=== PATIENT | female | born 1935 | race Caucasian/White ===

== ENCOUNTER 2016-03-07 15:26 | Inpatient (IN) | payer OTHER, MEDICARE ==
[2016-03-07 15:44] VITALS: BMI 28.3
--- NOTE | 2016-03-07 18:47 | PDOC ---
History of Present Illness <Marcio Campos - Last Filed: 03/07/16 20:38> - General History Source: Patient, Sibling Exam Limitations: No Limitations - History of Present Illness Initial Comments: 03/07/16 19:15 The patient is an 80 year old female, with significant past medical history of a left knee replacement (2014), hypothyroidism, HTN, rheumatoid arthritis, who presents today with a DVT in the right leg. The patient was at an appointment with her orthopedist, Dr. Kennedy. He noticed that her right leg was swollen and advised her to get an ultrasound right away. The patient states that her leg has been swollen for 2 days. The patient states that she is mobile; however , her mobility has decreased over the past few months secondary to RLE pain. The patient lives at home alone, but has 24 hour home care. Denies chest pain, SOB. Denies fever, chills, nausea, vomiting. Allergies: NKDA Surgical Hx: Right ankle surgery. PCP- Dr. Cr Ortho: Dr. Samy Kennedy. <Niya Reilly - Last Filed: 03/07/16 20:43> - General Chief Complaint: Pain Stated Complaint: RT LEG BLOOD CLOT Time Seen by Provider: 03/07/16 18:36 Past History - Past Medical History Anemia: No Asthma: No Cancer: No Cardiac Disorders: No CVA: No COPD: No CHF: No Dementia: No Diabetes: No GI Disorders: No Disorders: No HTN: Yes Hypercholesterolemia: Yes Liver Disease: No Seizures: No Thyroid Disease: Yes (HYPOTHYROID) - Surgical History Abdominal Surgery: No Appendectomy: No Cardiac Surgery: No Cholecystectomy: No Lung Surgery: No Neurologic Surgery: No Orthopedic Surgery: No - Immunization History Immunization Up to Date: Yes - Psycho/Social/Smoking Cessation Hx Anxiety: No Suicidal Ideation: No Smoking Status: No Smoking History: Never smoked Have you smoked in the past 12 months: No Number of Cigarettes Smoked Daily: 0 Information on smoking cessation initiated: No Hx Alcohol Use: Yes (occasion) Substance Use Type: Alcohol <Marcio Campos - Last Filed: 03/07/16 20:38> <Niya Reilly - Last Filed: 03/07/16 20:43> - Past Medical History Allergies/Adverse Reactions: Allergies Allergy/AdvReac Type Severity Reaction Status Date / Time No Known Drug Allergies Allergy Verified 03/07/16 15:44 Home Medications: Ambulatory Orders Aspirin Coated [Ecotrin] 81 mg PO DAILY 01/28/12 Levothyroxine [Synthroid] 100 mcg PO DAILY 01/28/12 Metoprolol Succinate [Toprol XL] 25 mg PO DAILY 01/28/12 Review of Systems - Review of Systems Able to Perform ROS?: Yes Comments:: 03/07/16 19:16 CONSTITUTIONAL: No fever, no chills, no fatigue EYES: No visual changes ENT: No ear pain, no sore throat CARDIOVASCULAR: No chest pain, no palpitations RESPIRATORY: No cough, no SOB GI: No abdominal pain, no nausea, no vomiting, no constipation, no diarrhea GENITOURINARY: No dysuria, no frequency, no hematuria MUSKULOSKELETAL: +RLE swelling. No backpain, no joint pain, no myalgias SKIN: No rash NEURO: No headache <Niya Reilly - Last Filed: 03/07/16 20:43> *Physical Exam - Vital Signs Last Vital Signs Temp Pulse Resp BP Pulse Ox 97.9 F 74 18 131/67 96 03/07/16 15:39 03/07/16 15:39 03/07/16 15:39 03/07/16 15:39 03/07/16 15:39 <Marcio Campos - Last Filed: 03/07/16 20:38> - Vital Signs Last Vital Signs Temp Pulse Resp BP Pulse Ox 97.9 F 74 18 131/67 96 03/07/16 15:39 03/07/16 15:39 03/07/16 15:39 03/07/16 15:39 03/07/16 15:39 - Physical Exam Comments: 03/07/16 19:22 CONSTITUTIONAL: Awake, Alert. Obese. HEAD: Normocephalic; atraumatic EYES: PERRL; EOM intact ENMT: External appears normal; normal oropharynx NECK: Supple; non-tender; no cervical lymphadenopathy CARD: Normal S1, S2; no murmurs, rubs, or gallops RESP: Normal chest excursion with respiration; breath sounds clear and equal bilaterally; no wheezes, rhonchi, or rales ABD: Soft, non-distended; non-tender; no palpable organomegaly, no palpable hernias EXT: RLE: significantly edematous with +4 pitting edema extending to the mid- thigh. Normal ROM in all four extremities; non-tender to palpation; distal pulses intact SKIN: Warm, dry, no rash NEURO: No focal neurological deficiencies. <Niya Reilly - Last Filed: 03/07/16 20:43> Heart Score/ECG Review #1 03/07/16 20:27 Normal, poor baseline. <Niya Reilly - Last Filed: 03/07/16 20:43> ED Treatment Course - LABORATORY CBC & Chemistry Diagram: 03/07/16 19:01 03/07/16 19:16 <Marcio Campos - Last Filed: 03/07/16 20:38> - LABORATORY CBC & Chemistry Diagram: 03/07/16 19:01 03/07/16 19:16 - RADIOLOGY Radiograph Interpretation: 03/07/16 19:18 EXAM#: TYPE/EXAM: RESULT: [id number] US/DUPLEX VASCUL US-1 LEG Right leg pain and swelling. Right lower extremity Doppler venous ultrasound. Grayscale, pulsed Doppler and color Doppler interrogation of the right lower extremity deep venous system was performed. There is noncompression and no flow seen within the right common femoral and greater saphenous vein. Noncompression of the deep femoral vein with flow seen around the thrombus. There is also noncompression of the proximal and mid superficial femoral vein. Some flow seen around the thrombus. Partial compression of the distal superficial and incomplete compression of the popliteal vein with minimal flow seen. Posterior tibial vein is poorly visualized with flow identified on the color Doppler images, likely a patent vessel. No Dillon's cyst is identified in the popliteal fossa. Impression: Findings consistent with deep venous thromboses involving the common femoral, superficial femoral and likely the popliteal vein. There is also thrombosis of the greater saphenous and deep femoral vein. Posterior tibial vein is likely patent Referring physician Dr. Samy Kennedy was made aware of the findings and patient was sent to the emergency room as per his advice. Reported By: Ger Joiner MD 03/07/16 [id number] <Niya Reilly - Last Filed: 03/07/16 20:43> Medical Decision Making - Medical Decision Making 03/07/16 20:39 Patient is a morbidly obese 80-year-old female with history of hypothyroidism who presents with signs and symptoms of right lower extremity DVT. Patient underwent an outpatient Doppler ultrasound of the right lower extremity which showed a common femoral, superficial femoral and popliteal DVT. Patient will receive Lovenox subcutaneous and will be admitted inpatient further evaluation and treatment. Dr. Rodriguez informed. <Marcio Campos - Last Filed: 03/07/16 20:38> - Medical Decision Making 03/07/16 19:26 Dr. Cr was paged via paging service at 7:00pm for a doctor to doctor consult. Dr. Rodriguez is admissions clinician. Awaiting a call back. Dr. Rodriguez called back at 7:20pm and spoke with Dr. Campos regarding the patient's care. <Niya Reilly - Last Filed: 03/07/16 20:43> *DC/Admit/Observation/Transfer - Discharge Dispostion Admit: Yes - Attestations Physician Attestion: 03/07/16 20:38 The documentation was prepared by the scribe under my direct supervision. I have reviewed the documentation which correctly represents the findings, medical decision-making and critical action taken by me. <Marcio Campos - Last Filed: 03/07/16 20:38> <Niya Reilly - Last Filed: 03/07/16 20:43> Diagnosis at time of Disposition: Deep venous thrombosis Qualifiers: DVT location: lower extremity Affected thrombotic vein of extremity: femoral Laterality: right Chronicity: acute Qualified Code(s): I82.411 - Acute embolism and thrombosis of right femoral vein - Referrals Referrals: Kai Cr MD [Primary Care Provider] -
[2016-03-07] MEDS ORDERED: ENOXAPARIN NA (PORCINE) 80 MG/0.8 ML DISP.SYRIN SQ SCH (19:30)
[2016-03-07] MEDS ORDERED: ACETAMINOPHEN 325 MG TABLET (FP) PO PRN (19:31)
[2016-03-07] MEDS ORDERED: ENOXAPARIN NA (PORCINE) 80 MG/0.8 ML DISP.SYRIN SQ ONE ×2 (19:45→21:12)
[2016-03-07 20:20] LABS: BASOPHIL 0.7 % (0-2.0); EOSINOPHIL 2.9 % (0-4.5); MCH 30.6 pg (25.7-33.7); MEAN CELL VOLUME 89.8 fl (80-96); MEAN PLT VOLUME 8.7 fl (7.5-11.1); NEUTROPHILS 73.8 % (42.8-82.8); PLATELET COUNT 209 K/MM3 (134-434); RDW 14.3 % (11.6-15.6); WHITE BLOOD COUNT 7.9 K/mm3 (4.0-10.0)
[2016-03-07 20:29] LABS: INR 1.08 (0.82-1.09); PROTHROMBIN TIME (PATIENT) 11.9 SEC (9.98-11.88)
[2016-03-07 21:15] LABS: BILIRUBIN,TOTAL 0.5 mg/dL (0.2-1.0); CALCIUM 9.5 mg/dL (8.5-10.1); CREATININE 0.9 mg/dL (0.55-1.02); TOT PROT 7.5 g/dl (6.4-8.2)
[2016-03-07] MEDS ORDERED: SODIUM CHLORIDE 500 ML IV STA (21:56)
[2016-03-08] MEDS ORDERED: LEVOTHYROXINE NA 100 MCG TABLET (FP) PO SCH (07:00)
[2016-03-08 08:33] LABS: BASOPHIL 0.9 % (0-2.0); EOSINOPHIL 3.8 % (0-4.5); MCH 30.6 pg (25.7-33.7); MCHC 34.2 g/dl (32.0-36.0); MEAN CELL VOLUME 89.3 fl (80-96); MEAN PLT VOLUME 7.7 fl (7.5-11.1); NEUTROPHILS 64.7 % (42.8-82.8); PLATELET COUNT 141 K/MM3 (134-434); RDW 14.1 % (11.6-15.6); WHITE BLOOD COUNT 5.4 K/mm3 (4.0-10.0)
[2016-03-08 08:53] LABS: INR 1.09 (0.82-1.09)
[2016-03-08 09:08] LABS: ALBUMIN 3.3 g/dl (3.4-5.0); ANION GAP 7 (8-16); CALCIUM 8.7 mg/dL (8.5-10.1); CO2 28 mmol/L (21-32); CREATININE 0.8 mg/dL (0.55-1.02); GLUCOSE,RANDOM 100 mg/dL (74-106); SGOT/AST 14 U/L (15-37); SGPT/ALT 18 U/L (12-78)
[2016-03-08 09:17] LABS: ALK PHOS 104 U/L (45-117); BILIRUBIN,TOTAL 0.6 mg/dL (0.2-1.0); THYROID STIMULATING HORMONE 7.14 uIU/ml (0.358-3.74); TOT PROT 6.2 g/dl (6.4-8.2)
[2016-03-08] MEDS: METOPROLOL SUCCINATE 25 MG TAB.SR.24H (FP) PO SCH (10:53)
--- NOTE | 2016-03-08 12:35 | HP ---
Admitting History and Physical - Primary Care Physician PCP: Kai Cr - Admission Chief Complaint: came in for leg sweling History of Present Illness: The patient is an 80 year old female, with significant past medical history of a left knee replacement (2014), hypothyroidism, HTN, rheumatoid arthritis, who presents today with a DVT in the right leg. The patient was at an appointment with her orthopedist, Dr. Kennedy. He noticed that her right leg was swollen and advised her to get an ultrasound right away. The patient states that her leg has been swollen for 2 days. The patient states that she is mobile; however , her mobility has decreased over the past few months secondary to RLE pain. The patient lives at home alone, but has 24 hour home care. Denies chest pain, SOB. Denies fever, chills, nausea, vomiting. Allergies: NKDA Surgical Hx: Right ankle surgery. PCP- Dr. Cr Ortho: Dr. Samy Kennedy. ultrasound of leg shows extensive Right DVT and started on lovenox per sister patient not been ambulating much after he recent ankle surgery History Source: Patient, Medical Record - Past Medical History Cardiovascular: Yes: HTN Endocrine: Yes: Hypothyroidism - Smoking History Smoking history: Never smoked Have you smoked in the past 12 months: No Aproximately how many cigarettes per day: 0 - Alcohol/Substance Use Hx Alcohol Use: Yes (occasion) Home Medications - Allergies Allergies/Adverse Reactions: Allergies Allergy/AdvReac Type Severity Reaction Status Date / Time No Known Drug Allergies Allergy Verified 03/07/16 15:44 - Home Medications Home Medications: Ambulatory Orders Aspirin Coated [Ecotrin] 81 mg PO DAILY 01/28/12 Levothyroxine [Synthroid] 100 mcg PO DAILY 01/28/12 Metoprolol Succinate [Toprol XL] 25 mg PO DAILY 01/28/12 Physical Examination Vital Signs: Vital Signs Temperature 97.4 F L 03/08/16 10:02 Pulse Rate 98 H 03/08/16 10:02 Respiratory Rate 20 03/08/16 10:02 Blood Pressure 155/74 03/08/16 10:02 O2 Sat by Pulse Oximetry (%) 100 03/07/16 21:22 Labs: CBC, BMP 03/08/16 08:00 03/08/16 08:00 Problem List - Problems (1) Deep venous thrombosis Assessment/Plan: lovenox-coumadin heme consult vascular eval possible filter placment Code(s): I82.409 - ACUTE EMBOLISM AND THOMBOS UNSP DEEP VN UNSP LOWER EXTREMITY Qualifiers: DVT location: lower extremity Affected thrombotic vein of extremity: femoral Laterality: right Chronicity: acute Qualified Code(s): I82.411 - Acute embolism and thrombosis of right femoral vein (2) Hypothyroid Assessment/Plan: tsh is elevated synthroid dose increased Code(s): E03.9 - HYPOTHYROIDISM, UNSPECIFIED
[2016-03-08] MEDS: ASPIRIN COATED 81 MG TABLET.EC PO SCH (13:21)
[2016-03-08] MEDS: ENOXAPARIN NA (PORCINE) 80 MG/0.8 ML DISP.SYRIN SQ SCH ×2 (13:25→21:13)
--- NOTE | 2016-03-08 13:53 | CONSULT ---
Consult Consult Specialty:: Hematology-Onclolgy Referred by:: Dr. Cr Reason for Consultation:: Thrombosis of the common femoral vein, superficial femoral vein, popliteal vein, greater saphenous vein , and deep femoral vein on right - History of Present Illness History of Present Illness: No provoking events of recent trips, sedentary life style , hormonal therapies, cigarette smoking. - History Source History Provided By: Patient Limitations to Obtaining History: No Limitations - Past Medical History Cardio/Vascular: Yes: HTN ...: No Endocrine: Yes: Hypothyroidism - Past Surgical History Past Surgical History: Yes: Joint Replacement (left total knee replacement; right ankle surgery) - Alcohol/Substance Use Hx Alcohol Use: Yes (social) - Smoking History Smoking history: Never smoked Have you smoked in the past 12 months: No Aproximately how many cigarettes per day: 0 - Social History Usual Living Arrangement: Alone Occupation: former facilities management executive Home Medications - Allergies Allergies/Adverse Reactions: Allergies Allergy/AdvReac Type Severity Reaction Status Date / Time No Known Drug Allergies Allergy Verified 03/07/16 15:44 - Home Medications Home Medications: Ambulatory Orders Aspirin Coated [Ecotrin] 81 mg PO DAILY 01/28/12 Levothyroxine [Synthroid] 100 mcg PO DAILY 01/28/12 Metoprolol Succinate [Toprol XL] 25 mg PO DAILY 01/28/12 Family Disease History - Family Disease History Family Disease History: Heart Disease: Father, Respiratory: Brother (4 brothers with cardiac disease), Other: Mother (natural causes) Other Family History: no family history of vascular events or strokes Review of Systems - Review of Systems Constitutional: denies: Fever, Unintentional Wgt. Loss, Weakness Eyes: denies: Blind Spots, Blurred Vision, Double Vision, Photophobia HENT: denies: Nasal Congestion, Throat Pain Neck: denies: Pain on Movement, Swollen Glands, Tenderness Cardiovascular: denies: Shortness of Breath Respiratory: denies: Hemoptysis, SOB, SOB on Exertion Gastrointestinal: denies: Abdominal Pain, Constipation, Diarrhea, Dysphagia, Indigestion, Vomiting Genitourinary: denies: Burning, Dysuria, Flank Pain, Hematuria Breasts: reports: No Symptoms Reported, Other (mammogram - 2years earlier reportedly as unremarkable) Integumentary: reports: Rash ( approximately 10 day history of erythemaous area medial aspect above right ankle) Neurological: reports: No Symptoms Endocrine: reports: No Symptoms Hematology/Lymphatic: reports: No Symptoms Psychiatric: reports: No Symptoms Physical Exam Vital Signs: Vital Signs Temperature 97.4 F L 03/08/16 10:02 Pulse Rate 98 H 03/08/16 10:02 Respiratory Rate 03/08/16 10:02 Blood Pressure 155/74 03/08/16 10:02 O2 Sat by Pulse Oximetry (%) 100 03/07/16 21:22 Constitutional: Yes: No Distress Eyes: Yes: EOM Intact, PERRL. No: Diplopia, Ptosis, Sclera Icterus HENT: Yes: Atraumatic, Normocephalic. No: Epistaxis, Rhinnorhea, Tonsillar Exudate Neck: Yes: Supple, Trachea Midline. No: Lymphadenopathy, Tenderness, Thyromegaly Cardiovascular: Yes: Regular Rate and Rhythm Respiratory: Yes: CTA Bilaterally Gastrointestinal: Yes: WNL, Normal Bowel Sounds. No: Hepatomegaly, Splenomegaly , Tenderness Renal/: No: CVA Tenderness - Left, CVA Tenderness - Right Breast(s): Yes: WNL, Left, Right Musculoskeletal: Yes: WNL Extremities: Yes: Other (area aboe right ankle of erythema). No: Calf Tenderness, Cool, Cyanosis Edema: LLE: 2+, RLE: 4+ Integumentary: Yes: Erythema (above right ankle), Rash Neurological: Yes: WNL ...Motor Strength: WNL Psychiatric: Yes: WNL Labs: CBC, BMP 03/08/16 08:00 03/08/16 08:00 Imaging - Results Chest X-ray: Report Reviewed Assessment/Plan Impression: DVT- unprovoked of the common femoral vein, superficial femoral vein,popliteal vein, greater saphenous vein, and deep femoral vein. Would suggest age appropriate malignancy work up with CT Scan evaluations to begin. Can have thrombophilia work up as out patient. 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 In absence of definitive etiology for DVT, will need termite control representative anticoagulation.
[2016-03-08] MEDS ORDERED: INFLUENZA VACCINE 45 MCG/0.5 ML (MDV 16-17) IM ONE (15:00)
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
[2016-03-09] MEDS: LEVOTHYROXINE NA 112 MCG TABLET (FP) PO SCH (06:02)
[2016-03-09] MEDS ORDERED: PT OWN MED DRAWER 7, Y5N ONE (09:37)
[2016-03-09] MEDS: ASPIRIN COATED 81 MG TABLET.EC PO SCH (09:39)
[2016-03-09] MEDS: ENOXAPARIN NA (PORCINE) 80 MG/0.8 ML DISP.SYRIN SQ SCH ×2 (09:40→22:18)
[2016-03-09] MEDS: METOPROLOL SUCCINATE 25 MG TAB.SR.24H (FP) PO SCH (09:40)
--- NOTE | 2016-03-09 11:09 | PN ---
Progress Note, Physician Chief Complaint: THIS IS THE FIRST TIME I EVALUATE THIS PATIENT MEDICALLY CHART REVIEWED LABS REVIEWED PATIENT LYING DOWN COMFORTABLY DENIES CHEST PAIN DENIES SOB C/O RIGHT LEG SELLING AND WEAKNESS - Current Medication List Current Medications: Active Medications Acetaminophen (Tylenol -) 650 mg PO Q6H PRN PRN Reason: PAIN OR FEVER Aspirin (Ecotrin -) 81 mg PO DAILY [facility] Last Admin: 03/09/16 09:39 Dose: 81 mg Enoxaparin Sodium (Lovenox -) 80 mg SQ BID [facility] Last Admin: 03/09/16 09:40 Dose: 80 mg Levothyroxine Sodium (Synthroid -) 112 mcg PO DAILY@0700 [facility] Last Admin: 03/09/16 06:02 Dose: 112 mcg Metoprolol Succinate (Toprol Xl -) 25 mg PO DAILY [facility] Last Admin: 03/09/16 09:40 Dose: 25 mg - Objective Vital Signs: Vital Signs Temperature 98.1 F 03/09/16 09:00 Pulse Rate 71 03/09/16 09:00 Respiratory Rate 18 03/09/16 09:00 Blood Pressure 147/76 03/09/16 09:00 O2 Sat by Pulse Oximetry (%) 96 03/08/16 21:00 Constitutional: Yes: Mild Distress Eyes: Yes: WNL HENT: Yes: WNL Neck: Yes: WNL Cardiovascular: Yes: WNL Respiratory: Yes: WNL Gastrointestinal: Yes: WNL Genitourinary: Yes: WNL Musculoskeletal: Yes: Joint Swelling, Muscle Weakness Extremities: Yes: Erythema Edema: Yes Edema: LLE: 2+, RLE: 2+ Peripheral Pulses WNL: Yes Integumentary: Yes: Erythema, Rash Wound/Incision: Yes: Open to air Neurological: Yes: Weakness ...Motor Strength: LLE, RLE Psychiatric: Yes: Other Labs: CBC, BMP 03/08/16 08:00 03/08/16 08:00 INR, PTT INR 1.09 (0.82-1.09) 03/08/16 08:00 Problem List - Problems (1) Deep venous thrombosis Code(s): I82.409 - ACUTE EMBOLISM AND THOMBOS UNSP DEEP VN UNSP LOWER EXTREMITY Qualifiers: DVT location: lower extremity Affected thrombotic vein of extremity: femoral Laterality: right Chronicity: acute Qualified Code(s): I82.411 - Acute embolism and thrombosis of right femoral vein (2) Hypothyroid Code(s): E03.9 - HYPOTHYROIDISM, UNSPECIFIED (3) Unsteady gait Code(s): R26.81 - UNSTEADINESS ON FEET Assessment/Plan AC ON LOVENOX OOB TO CHAIR ADD MYCOLOG TO HEELS CHANGE TO ELIQUIS ONCE HEMATOLOGY EVALUATES
[2016-03-09 11:40] LABS: INR 1.12 (0.82-1.09); PROTHROMBIN TIME (PATIENT) 12.3 SEC (9.98-11.88)
[2016-03-09] MEDS: NYSTATIN/TRIAMCINOLONE TOPICAL CREAM 15 GM TUBE TP SCH ×2 (12:23→22:18)
[2016-03-10] MEDS: LEVOTHYROXINE NA 112 MCG TABLET (FP) PO SCH (06:18)
[2016-03-10 09:33] LABS: INR 1.14 (0.82-1.09); PROTHROMBIN TIME (PATIENT) 12.6 SEC (9.98-11.88)
[2016-03-10] MEDS: ENOXAPARIN NA (PORCINE) 80 MG/0.8 ML DISP.SYRIN SQ SCH ×2 (10:32→22:02)
[2016-03-10] MEDS: ASPIRIN COATED 81 MG TABLET.EC PO SCH (10:32)
[2016-03-10] MEDS: METOPROLOL SUCCINATE 25 MG TAB.SR.24H (FP) PO SCH (10:32)
[2016-03-10] MEDS: NYSTATIN/TRIAMCINOLONE TOPICAL CREAM 15 GM TUBE TP SCH ×2 (10:32→22:02)
--- NOTE | 2016-03-10 12:56 | PN ---
Progress Note, Physician Chief Complaint: AWAKE ALERT EATING LUNCH DENIES CHEST PAIN OR SOB - Current Medication List Current Medications: Active Medications Acetaminophen (Tylenol -) 650 mg PO Q6H PRN PRN Reason: PAIN OR FEVER Aspirin (Ecotrin -) 81 mg PO DAILY [facility] Last Admin: 03/10/16 10:32 Dose: 81 mg Enoxaparin Sodium (Lovenox -) 80 mg SQ BID [facility] Last Admin: 03/10/16 10:32 Dose: 80 mg Levothyroxine Sodium (Synthroid -) 112 mcg PO DAILY@0700 [facility] Last Admin: 03/10/16 06:18 Dose: 112 mcg Metoprolol Succinate (Toprol Xl -) 25 mg PO DAILY [facility] Last Admin: 03/10/16 10:32 Dose: 25 mg Nystatin/Triamcinolone Acetonide (Mycolog Ii Cream -) 1 applic TP BID [facility] Last Admin: 03/10/16 10:32 Dose: 1 applic - Objective Vital Signs: Vital Signs Temperature 98 F 03/10/16 06:53 Pulse Rate 77 03/10/16 06:53 Respiratory Rate 18 03/10/16 09:00 Blood Pressure 154/79 03/10/16 06:53 O2 Sat by Pulse Oximetry (%) 94 L 03/10/16 09:00 Constitutional: Yes: No Distress Eyes: Yes: WNL HENT: Yes: WNL Neck: Yes: WNL Cardiovascular: Yes: WNL Respiratory: Yes: WNL Gastrointestinal: Yes: WNL Genitourinary: Yes: WNL Musculoskeletal: Yes: Muscle Weakness Extremities: Yes: WNL Edema: Yes Peripheral Pulses WNL: Yes Integumentary: Yes: WNL Wound/Incision: Yes: Clean/Dry Neurological: Yes: WNL ...Motor Strength: WNL Labs: CBC, BMP 03/08/16 08:00 03/08/16 08:00 INR, PTT INR 1.14 (0.82-1.09) 03/10/16 06:45 Problem List - Problems (1) Deep venous thrombosis Code(s): I82.409 - ACUTE EMBOLISM AND THOMBOS UNSP DEEP VN UNSP LOWER EXTREMITY Qualifiers: DVT location: lower extremity Affected thrombotic vein of extremity: femoral Laterality: right Chronicity: acute Qualified Code(s): I82.411 - Acute embolism and thrombosis of right femoral vein (2) Hypothyroid Code(s): E03.9 - HYPOTHYROIDISM, UNSPECIFIED (3) Unsteady gait Code(s): R26.81 - UNSTEADINESS ON FEET Assessment/Plan DVT AC CONTINUE LOVENOX WITH BRIDGE TO [facility] SX HEMATOLOGY
[2016-03-11] MEDS: LEVOTHYROXINE NA 112 MCG TABLET (FP) PO SCH (06:14)
[2016-03-11 07:21] LABS: INR 1.08 (0.82-1.09); PROTHROMBIN TIME (PATIENT) 11.9 SEC (9.98-11.88)
[2016-03-11 07:26] LABS: MCHC 34.7 g/dl (32.0-36.0); MEAN CELL VOLUME 89.2 fl (80-96); MEAN PLT VOLUME 7.9 fl (7.5-11.1); PLATELET COUNT 139 K/MM3 (134-434); RDW 13.8 % (11.6-15.6); WHITE BLOOD COUNT 5.9 K/mm3 (4.0-10.0)
[2016-03-11 08:01] LABS: ALBUMIN 3.1 g/dl (3.4-5.0); ALK PHOS 87 U/L (45-117); ANION GAP 10 (8-16); BILIRUBIN,TOTAL 0.5 mg/dL (0.2-1.0); CALCIUM 9.1 mg/dL (8.5-10.1); CO2 27 mmol/L (21-32); CREATININE 0.7 mg/dL (0.55-1.02); GLUCOSE,RANDOM 95 mg/dL (74-106); SGOT/AST 39 U/L (15-37); SGPT/ALT 37 U/L (12-78); TOT PROT 5.9 g/dl (6.4-8.2)
--- NOTE | 2016-03-11 08:50 | PN ---
Progress Note, Physician - Current Medication List Current Medications: Active Medications Acetaminophen (Tylenol -) 650 mg PO Q6H PRN PRN Reason: PAIN OR FEVER Apixaban (Eliquis -) 10 mg PO BID [facility] Aspirin (Ecotrin -) 81 mg PO DAILY [facility] Last Admin: 03/10/16 10:32 Dose: 81 mg Levothyroxine Sodium (Synthroid -) 112 mcg PO DAILY@0700 [facility] Last Admin: 03/11/16 06:14 Dose: 112 mcg Metoprolol Succinate (Toprol Xl -) 25 mg PO DAILY [facility] Last Admin: 03/10/16 10:32 Dose: 25 mg Nystatin/Triamcinolone Acetonide (Mycolog Ii Cream -) 1 applic TP BID [facility] Last Admin: 03/10/16 22:02 Dose: 1 applic - Objective Vital Signs: Vital Signs Temperature 97.4 F L 03/11/16 07:10 Pulse Rate 71 03/11/16 07:10 Respiratory Rate 16 03/11/16 07:10 Blood Pressure 168/86 03/11/16 07:10 O2 Sat by Pulse Oximetry (%) 94 L 03/10/16 21:00 Cardiovascular: Yes: Regular Rate and Rhythm Respiratory: Yes: Regular, CTA Bilaterally Gastrointestinal: Yes: Normal Bowel Sounds, Soft Labs: CBC, BMP 03/11/16 06:00 03/11/16 06:00 INR, PTT INR 1.08 (0.82-1.09) 03/11/16 06:00 Problem List - Problems (1) Deep venous thrombosis Assessment/Plan: START ELIQUIS MONITOR PT Code(s): I82.409 - ACUTE EMBOLISM AND THOMBOS UNSP DEEP VN UNSP LOWER EXTREMITY Qualifiers: DVT location: lower extremity Affected thrombotic vein of extremity: femoral Laterality: right Chronicity: acute Qualified Code(s): I82.411 - Acute embolism and thrombosis of right femoral vein (2) Hypothyroid Code(s): E03.9 - HYPOTHYROIDISM, UNSPECIFIED (3) Gait disorder Assessment/Plan: PT EVAL Code(s): R26.9 - UNSPECIFIED ABNORMALITIES OF GAIT AND MOBILITY
[2016-03-11] MEDS ORDERED: PT OWN MED DRAWER 7, Y5N ONE ×2 (10:35→21:21)
[2016-03-11] MEDS: METOPROLOL SUCCINATE 25 MG TAB.SR.24H (FP) PO SCH (10:37)
[2016-03-11] MEDS: ASPIRIN COATED 81 MG TABLET.EC PO SCH (10:37)
[2016-03-11] MEDS: NYSTATIN/TRIAMCINOLONE TOPICAL CREAM 15 GM TUBE TP SCH ×2 (10:38→21:44)
[2016-03-11] MEDS: APIXABAN 5 MG TABLET PO SCH ×2 (11:10→21:43)
--- NOTE | 2016-03-11 16:23 | EKG ---
Test Reason : Blood Pressure : / mmHG Vent. Rate : 074 BPM Atrial Rate : 258 BPM P-R Int : 000 ms QRS Dur : 082 ms QT Int : 402 ms P-R-T Axes : 052 015 046 degrees QTc Int : 446 ms BASELINE ARTIFACT, UNDETERMINED RHYTHM, PROBABLY SINUS RHYTHM POSSIBLE ANTERIOR INFARCT , AGE UNDETERMINED ABNORMAL ECG WHEN COMPARED WITH ECG OF 28-JAN-2012 14:42, LIKELY NO SIGNIFICANT CHANGES Confirmed by SYED BARDALES, FARIHA ([id number]) on 03/11/2016 4:22:42 PM Referred By: Confirmed By:FARIHA LYNCH MD
--- NOTE | 2016-03-11 22:08 | PN ---
Progress Note (short form) - Note Progress Note: PAtient seen and examined Feels well AFVSS HEENT: LISA, EOM Intact Cor: RSR, No murmurs, No gallops Lungs: Clear to P&A Abd: Soft, Normal bowel sounds, No organomegaly Ext:RLE edema Abnormal Lab Results 03/12/16 06:00 INR 1.45 H D Current Medications Acetaminophen (Tylenol -) 650 mg PO Q6H PRN PRN Reason: PAIN OR FEVER Apixaban (Eliquis -) 10 mg PO BID [facility] Last Admin: 03/12/16 09:46 Dose: 10 mg Aspirin (Ecotrin -) 81 mg PO DAILY [facility] Last Admin: 03/12/16 09:47 Dose: 81 mg Levothyroxine Sodium (Synthroid -) 112 mcg PO DAILY@0700 [facility] Last Admin: 03/12/16 06:05 Dose: 112 mcg Metoprolol Succinate (Toprol Xl -) 25 mg PO DAILY [facility] Last Admin: 03/12/16 09:47 Dose: 25 mg Nystatin/Triamcinolone Acetonide (Mycolog Ii Cream -) 1 applic TP BID [facility] Last Admin: 03/12/16 09:47 Dose: 1 applic A/P 80 y/o patient with extensive RLE DVT CT scans reviewed- chest CT --nl CT a/p --thick walled ovarian cyst---needs U/S follow up On eliquis 10mg bid for 7 days then switch to 5mg bid needs outpatient follow up for thrombophilia w/u and need [employer]ICAL DIRECTOR F/u regarding ovarian cyst
[2016-03-12] MEDS: LEVOTHYROXINE NA 112 MCG TABLET (FP) PO SCH (06:05)
[2016-03-12 07:50] LABS: INR 1.45 (0.82-1.09); PROTHROMBIN TIME (PATIENT) 16.1 SEC (9.98-11.88)
--- NOTE | 2016-03-12 09:18 | DS ---
Physical Examination Vital Signs: Vital Signs Temperature 98.5 F 03/12/16 07:16 Pulse Rate 82 03/12/16 07:16 Respiratory Rate 20 03/12/16 07:16 Blood Pressure 146/62 03/12/16 07:16 O2 Sat by Pulse Oximetry (%) 98 03/11/16 21:00 Findings/Remarks: NOTED NOTES NOTES D/W PT FOOT PAIN Cardiovascular: Yes: Regular Rate and Rhythm Respiratory: Yes: Regular, CTA Bilaterally Gastrointestinal: Yes: Normal Bowel Sounds, Soft Extremities: Yes: Deformity Edema: Yes Edema: RLE: Trace Labs: CBC, BMP 03/11/16 06:00 03/11/16 06:00 Discharge Summary Reason For Visit: DEEP VENOUS THOMBOSIS Current Active Problems Deep venous thrombosis (Acute) Gait disorder (Acute) Hypothyroid (Acute) Unsteady gait (Acute) Hospital Course: The patient is an 80 year old female, with significant past medical history of a left knee replacement (2014), hypothyroidism, HTN, rheumatoid arthritis, who presents today with a DVT in the right leg. The patient was at an appointment with her orthopedist, Dr. Kennedy. He noticed that her right leg was swollen and advised her to get an ultrasound right away. The patient states that her leg has been swollen for 2 days. The patient states that she is mobile; however , her mobility has decreased over the past few months secondary to RLE pain. The patient lives at home alone, but has 24 hour home care. Denies chest pain, SOB. Denies fever, chills, nausea, vomiting. Allergies: NKDA Surgical Hx: Right ankle surgery. PCP- Dr. Cr Ortho: Dr. Samy Kennedy. ultrasound of leg shows extensive Right DVT and started on lovenox per sister patient not been ambulating much after he recent ankle surgery Problems (1) Deep venous thrombosis Assessment/Plan: START ELIQUIS MONITOR PT Code(s): I82.409 - ACUTE EMBOLISM AND THOMBOS UNSP DEEP VN UNSP LOWER EXTREMITY Qualifiers: DVT location: lower extremity Affected thrombotic vein of extremity: femoral Laterality: right Chronicity: acute Qualified Code(s): I82.411 - Acute embolism and thrombosis of right femoral vein (2) Hypothyroid Code(s): E03.9 - HYPOTHYROIDISM, UNSPECIFIED (3) Gait disorder Assessment/Plan: PT EVAL--SNF--D/W PT Code(s): R26.9 - UNSPECIFIED ABNORMALITIES OF GAIT AND MOBILITY (4) Foot Pain Assessment/Plan: PT EVAL XRAY ORTHO - Instructions Referrals: Kai Cr MD [Primary Care Provider] - - Home Medications Comprehensive Discharge Medication List: Ambulatory Orders Aspirin Coated [Ecotrin] 81 mg PO DAILY 01/28/12 Levothyroxine [Synthroid] 100 mcg PO DAILY 01/28/12 Metoprolol Succinate [Toprol XL] 25 mg PO DAILY 01/28/12
[2016-03-12] MEDS ORDERED: PT OWN MED DRAWER 7, Y5N ONE (09:42)
[2016-03-12] MEDS: APIXABAN 5 MG TABLET PO SCH ×2 (09:46→21:25)
[2016-03-12] MEDS: NYSTATIN/TRIAMCINOLONE TOPICAL CREAM 15 GM TUBE TP SCH ×2 (09:47→21:25)
[2016-03-12] MEDS: METOPROLOL SUCCINATE 25 MG TAB.SR.24H (FP) PO SCH (09:47)
[2016-03-12] MEDS: ASPIRIN COATED 81 MG TABLET.EC PO SCH (09:47)
--- NOTE | 2016-03-12 12:13 | CON.OBG ---
Consult Consult Specialty:: Gynecology Referred by:: Joel Cr Reason for Consultation:: Thickend wall of right ovary on CT scan during work up for deep vein thrombosis. - History of Present Illness Chief Complaint: Right lower leg edema History of Present Illness: 80 year old female, G0 who while visiting orthopedic surgeon last week was found to have swelling of right lower extremity and sent to [facility] for evaluation. Imaging studies have demonstrated thrombosis of Right common femoral vein, superficial femoral vein, popliteal vein, greater saphenous vein and deep femoral vein. CT scan performed during evaluation on 03/08/2016 revealed a 2.5 by 1.7 cm thick walled right ovarian cyst. Cecilia was seen in office in 2014 with a negative cervical pap smear. She reports having mammograms annually except for this year. She was and was unable to conceive and was told this was due to formation of ovarian cyst. Her menses were normal. Menopause was uneventful in the late 40's. She denies hormone replacement therapy. She denies abdominal swelling, distention, bloating or loss of appetite. There is no vaginal discharge or bleeding. - History Source History Provided By: Patient Limitations to Obtaining History: No Limitations - Past Medical History Cardio/Vascular: Yes: HTN ...: No ...: 0 Endocrine: Yes: Hypothyroidism - Past Surgical History Past Surgical History: Yes: Joint Replacement (left total knee replacement; right ankle surgery) - Alcohol/Substance Use Hx Alcohol Use: Yes (social) - Smoking History Smoking history: Never smoked Have you smoked in the past 12 months: No Aproximately how many cigarettes per day: 0 - Social History Usual Living Arrangement: Alone Occupation: former global account executive Home Medications - Allergies Allergies/Adverse Reactions: Allergies Allergy/AdvReac Type Severity Reaction Status Date / Time No Known Drug Allergies Allergy Verified 03/07/16 15:44 - Home Medications Home Medications: Ambulatory Orders Aspirin Coated [Ecotrin] 81 mg PO DAILY 01/28/12 Levothyroxine [Synthroid] 100 mcg PO DAILY 01/28/12 Metoprolol Succinate [Toprol XL] 25 mg PO DAILY 01/28/12 Family Disease History - Family Disease History Family Disease History: Heart Disease: Father, Respiratory: Brother (4 brothers with cardiac disease), Other: Mother (natural causes) Other Family History: no family history of vascular events or strokes. Denies family history of ovarian or uterine cancer. Review of Systems - Review of Systems Constitutional: reports: No Symptoms Cardiovascular: reports: No Symptoms Respiratory: reports: No Symptoms Gastrointestinal: reports: No Symptoms Genitourinary: reports: Incontinence Breasts: reports: No Symptoms Reported Musculoskeletal: reports: Joint Pain (Right knee pain), Joint Swelling Psychiatric: reports: No Symptoms Physical Exam-[facility]EL[facility]OLDER Vital Signs: Vital Signs Temperature 98.5 F 03/12/16 07:16 Pulse Rate 82 03/12/16 07:16 Respiratory Rate 20 03/12/16 07:16 Blood Pressure 146/62 03/12/16 07:16 O2 Sat by Pulse Oximetry (%) 97 03/12/16 09:00 Constitutional: Yes: Well Nourished, No Distress, Calm Gastrointestinal: Yes: WNL (soft, non tender. No distention. No masses palpated. ) ...Rectal Exam: Yes: WNL Pelvis: Yes: WNL External Genitalia: Yes: Normal, Other (Vulvar atrophy) Vaginal Exam: Yes: Other (Vaginal atrophy) Cervix: Yes: Normal Uterus: Yes: Normal Adnexa: Normal: Bilateral Breast(s): Yes: WNL (No masses, no retraction.) Edema: Yes Edema: LLE: 2+, RLE: 4+ Psychiatric: Yes: WNL Labs: CBC, BMP 03/11/16 06:00 03/11/16 06:00 Problem List - Problems (1) Deep venous thrombosis Code(s): I82.409 - ACUTE EMBOLISM AND THOMBOS UNSP DEEP VN UNSP LOWER EXTREMITY Qualifiers: DVT location: lower extremity Affected thrombotic vein of extremity: femoral Laterality: right Chronicity: acute Qualified Code(s): I82.411 - Acute embolism and thrombosis of right femoral vein (2) Right ovarian cyst Code(s): N83.20 - UNSPECIFIED OVARIAN CYSTS * DO NOT USE * (3) Hypothyroid Code(s): E03.9 - HYPOTHYROIDISM, UNSPECIFIED Assessment/Plan Ovarian Cyst Patient reports history of ovarian cyst during her menstrual years and affecting her fertility. Due to menopause, thickened wall of right ovarian cyst with recent thrombosis, advise Pelvic ultrasound. Ovarian tumor markers.
--- NOTE | 2016-03-12 15:55 | CONS ---
DATE OF CONSULTATION: 03/12/2016 PHYSICAL MEDICINE REHABILITATION CONSULTATION REFERRING PHYSICIAN: Kai Cr MD HISTORY OF PRESENT ILLNESS: The patient is an 80-year-old woman with past medical history of rheumatoid arthritis, with a history of a left total knee replacement. She was admitted with swelling after she was found to have deep venous thrombosis in the right lower extremity. Apparently the patient was seeing her orthopedic physician for possible right total knee replacement and was found to have swelling and an ultrasound revealed a right lower extremity DVT. She was admitted and started on anticoagulation. She underwent further testing, including CT of the chest, abdomen and pelvis, which showed no evidence of any malignancy. Mild sigmoid diverticulosis was noted, without any evidence of acute diverticulitis. The patient was also seen to have a right common femoral vein thrombus. The patient was cleared to start physical therapy. She was able to stand and ambulate, but was advised to use a walker. She needed min assist for transfers and was able to ambulate about 30 feet. CBC was normal, last done March 11, WBCs 5.9, hemoglobin 13.3, platelet count 139. INR on February was normal at 1.08, and chemistry showed a low total protein of 5.9 and albumin of 3.1, but otherwise chemistry within normal limits. On admission she did have some slight elevation in her BUN to 26. Creatinine was normal at 0.9. As of March 11, BUN 17, creatinine 0.7, sodium normal at 143, potassium normal at 4.1, chloride normal at 106, CO2 normal at 27. AST was slightly elevated; it had been normal; currently 39. The patient remains on Eliquis after being started on Lovenox. REVIEW OF PAST MEDICAL AND SURGICAL HISTORY: Hypertension, hypothyroidism, rheumatoid arthritis, history of a left total knee replacement. SOCIAL HISTORY: The patient states she lives alone, but has 24-hour care at home in multiple shifts. Premorbidly she ambulated with assistive device within the home, but apparently used a straight cane outside the home. CURRENT FUNCTION: She was able to ambulate 30 feet with Physical Therapy, with a rolling walker, close contact guard, antalgic gait on the right side. Min assist for sit to stand transfer. REVIEW OF SYSTEMS: She denies any lightheadedness, any dizziness, any blurry vision or double vision, any nausea or vomiting, difficulty swallowing, difficulty chewing, any headache, any chest pain, shortness of breath, dyspnea on exertion, cough or abdominal pain. She denies any bowel or bladder incontinence or retention, dysuria, polyuria, fever, chills. She does have some swelling of the right lower extremity, chronic pain in her right knee. She has no complaints of other arthritic joints, although a little bit achy in her shoulders and hands at times. No numbness or tingling. No weight loss or weight gain. No skin rash or breakdown. PHYSICAL EXAMINATION: General: An overweight woman seen lying supine in bed, who is awake, alert, cooperative, seems to have good insight into her medical conditions, and is in no acute distress. HEENT: She is normocephalic and atraumatic. Extraocular muscles appear intact. She has no obvious facial weakness. No oral ulcers or dry mucous membranes. Neck: Supple. Extremities: She does have some edema in the right more than the left lower extremity, +1 in the right lower extremity, trace in the left lower extremity. No isolated calf tenderness but diffuse tenderness in the right lower extremity. Skin: Without any rash or breakdown. Neuromuscular: She is awake, alert and oriented x3. Cranial nerves 2 through 12 are grossly intact. She has restriction in both of her shoulders at about 100 to 110 degrees forward flexion, 90 degrees of abduction, with mild discomfort at end-range. Fairly good elbow flexion and elbow extension. Mild arthritic changes are noted in her hands, which are not limiting. At least 4+/5 strength. Normal sensation in the upper extremities to light touch. In the lower extremities, fairly good range of motion in the ankles, dorsiflexion and plantar flexion. She does have extensor lag in both knees, with arthritic change in the right knee, medial joint line tenderness, crepitus, and flexion to about 90 degrees, but she lacks about 15 degrees of extension on the right and 10 to 15 in the left knee. Antigravity strength in her hip girdle with some mild weakness. Normal sensation to light touch. Unable to assess her gait at this time as she is undergoing care, and no assistive device available. OVERALL IMPRESSION: 1. Deficits in mobility and activities of daily living, which are multifactorial. 2. Right lower extremity deep venous thrombosis, on anticoagulation. 3. History of rheumatoid arthritis, including arthritic right knee, with history of a left total knee replacement, for possible future right total knee replacement. 4. Bilateral shoulder adhesive capsulitis, with probable underlying arthritic disease, rheumatoid versus osteo. 5. History of hypertension. 6. Overweight. 7. Hypothyroidism. 8. No obvious cause of hypercoagulable state or reason to develop deep venous thrombosis. PLAN AND SUGGESTIONS: 1. Physical therapy to continue while the patient is in the hospital, including bed mobility, transfers, gait training, strengthening, reconditioning. 2. Out of bed to chair. 3. Anticoagulation with Eliquis. 4. Cardiopulmonary precautions. 5. Safety/fall precautions. 6. Monitor bowels. 7. Disposition: Pending home with 24-hour care and home care versus short-term rehab. Per the patient, she has 24-hour care at home and should be able to return home once medically stable. If this is the case, follow up with Case Management. Thank you for this referral. ABDELRAHMAN GARCIA M.D. [id number]
--- NOTE | 2016-03-12 20:04 | PN ---
Progress Note (short form) - Note Progress Note: Patient seen and examined. Complains of pain in RLE especially on ambulation. Placed on eliquis Last Vital Signs Temp Pulse Resp BP Pulse Ox 97.7 F 75 20 149/81 97 03/12/16 16:30 03/12/16 16:30 03/12/16 16:30 03/12/16 16:30 03/12/16 09:00 HEENT: LISA, EOM Intact Oropharynx: No thrush, No mucositis Cor: RSR, No murmurs, No gallops Lungs: Clear to P&A Abd: Soft, Normal bowel sounds, No organomegaly Ext:RLE swelling Skin: No rashes, Integument intact CBC, BMP 03/11/16 06:00 03/11/16 06:00 Current Medications Generic Name Dose Route Start Last Admin Trade Name Freq PRN Reason Stop Dose Admin Acetaminophen 650 mg 03/07/16 19:31 Tylenol - PO Q6H PRN PAIN OR FEVER Apixaban 10 mg 03/11/16 10:00 03/12/16 09:46 Eliquis - PO 10 mg BID [facility] Administration Aspirin 81 mg 03/08/16 10:00 03/12/16 09:47 Ecotrin - PO 81 mg DAILY [facility] Administration Levothyroxine Sodium 112 mcg 03/09/16 07:00 03/12/16 06:05 Synthroid - PO 112 mcg DAILY@0700 [facility] Administration Metoprolol Succinate 25 mg 03/08/16 10:00 03/12/16 09:47 Toprol Xl - PO 25 mg DAILY [facility] Administration Nystatin/Triamcinolone Acetonide 1 applic 03/09/16 12:30 03/12/16 09:47 Mycolog Ii Cream - TP 1 applic BID [facility] Administration Impression: Extensive unprovoked DVT RLE A/C with Eliquis Ovarian cyst Continue outpatient Eliquis -10 mg BID x 7 days and then lower to 5 mg BID Office follow up for thrombophilia work up.
[2016-03-13 06:04] VITALS: TEMP 97.4
[2016-03-13] MEDS: LEVOTHYROXINE NA 112 MCG TABLET (FP) PO SCH (06:30)
--- NOTE | 2016-03-13 08:04 | DS ---
Physical Examination Vital Signs: Vital Signs Temperature 97.4 F L 03/13/16 06:04 Pulse Rate 70 03/13/16 06:04 Respiratory Rate 18 03/13/16 06:04 Blood Pressure 158/76 03/13/16 06:04 O2 Sat by Pulse Oximetry (%) 97 03/12/16 21:00 Cardiovascular: Yes: Regular Rate and Rhythm Respiratory: Yes: Regular, CTA Bilaterally Gastrointestinal: Yes: Normal Bowel Sounds, Soft Edema: Yes Labs: CBC, BMP 03/11/16 06:00 03/11/16 06:00 Discharge Summary Reason For Visit: DEEP VENOUS THOMBOSIS Current Active Problems Deep venous thrombosis (Acute) Gait disorder (Acute) Hypothyroid (Acute) Right ovarian cyst (Acute) Unsteady gait (Acute) Hospital Course: he patient is an 80 year old female, with significant past medical history of a left knee replacement (2014), hypothyroidism, HTN, rheumatoid arthritis, who presents today with a DVT in the right leg. The patient was at an appointment with her orthopedist, Dr. Kennedy. He noticed that her right leg was swollen and advised her to get an ultrasound right away. The patient states that her leg has been swollen for 2 days. The patient states that she is mobile; however , her mobility has decreased over the past few months secondary to RLE pain. The patient lives at home alone, but has 24 hour home care. Denies chest pain, SOB. Denies fever, chills, nausea, vomiting. Allergies: NKDA Surgical Hx: Right ankle surgery. PCP- Dr. Cr Ortho: Dr. Samy Kennedy. ultrasound of leg shows extensive Right DVT and started on lovenox per sister patient not been ambulating much after he recent ankle surgery Problems (1) Deep venous thrombosis Assessment/Plan: START ELIQUIS MONITOR PT Code(s): I82.409 - ACUTE EMBOLISM AND THOMBOS UNSP DEEP VN UNSP LOWER EXTREMITY Qualifiers: DVT location: lower extremity Affected thrombotic vein of extremity: femoral Laterality: right Chronicity: acute Qualified Code(s): I82.411 - Acute embolism and thrombosis of right femoral vein (2) Hypothyroid Code(s): E03.9 - HYPOTHYROIDISM, UNSPECIFIED (3) Gait disorder Assessment/Plan: PT EVAL--SNF--D/W PT Code(s): R26.9 - UNSPECIFIED ABNORMALITIES OF GAIT AND MOBILITY (4) Foot Pain Assessment/Plan: PT EVAL XRAY ORTHO (5) Ovarian Cyst Assessment/Plan: us - Instructions Referrals: Kai Cr MD [Primary Care Provider] - Condition: Improved - Instructions Referrals: Kai Cr MD [Primary Care Provider] - Disposition: SNF FACILITY - Home Medications Comprehensive Discharge Medication List: Ambulatory Orders Aspirin Coated [Ecotrin -] 81 mg PO DAILY 01/28/12 Levothyroxine [Synthroid -] 100 mcg PO DAILY 01/28/12 Metoprolol Succinate [Toprol XL -] 25 mg PO DAILY 01/28/12 Acetaminophen [Tylenol .Regular Strength -] 650 mg PO Q6H PRN #0 tablet Apixaban [Eliquis -] 10 mg PO BID tablet 03/13/16 Nystatin/Triamcinolone Top Cr [Mycolog II -] 1 applic TP BID applic 03/13/16
[2016-03-13 08:52] LABS: INR 1.5 (0.82-1.09); PROTHROMBIN TIME (PATIENT) 16.6 SEC (9.98-11.88)
[2016-03-13 08:58] VITALS: BP 165/85; PULSE 71
[2016-03-13] MEDS ORDERED: PT OWN MED DRAWER 7, Y5N ONE (10:34)
[2016-03-13] MEDS: ASPIRIN COATED 81 MG TABLET.EC PO SCH (10:55)
[2016-03-13] MEDS: APIXABAN 5 MG TABLET PO SCH (10:55)
[2016-03-13] MEDS: METOPROLOL SUCCINATE 25 MG TAB.SR.24H (FP) PO SCH (10:56)
[2016-03-13] MEDS: NYSTATIN/TRIAMCINOLONE TOPICAL CREAM 15 GM TUBE TP SCH (10:56)
[2016-03-18 12:41] LABS: POSTMENO ROMA 5.41; PREMENO ROMA 6.63
== END 2016-03-13 11:59 | DRG 301 ==
LOC: JER 15:26 → JERBED 21:16 → J8W 03-08 12:44
PROVIDERS: ADMIT Family Medicine; ATTEND Family Medicine
PROC: 3E033GC Introduction of Other Therapeutic Substance into Peripheral Vein, Percutaneous Approach (ICD-10-PCS; principal; 2016-03-07)
DX: I82.411 Acute embolism and thrombosis of right femoral vein (principal); I82.431 Acute embolism and thrombosis of right popliteal vein; I82.491 Acute embolism and thrombosis of other specified deep vein of right lower extremity; E03.9 Hypothyroidism, unspecified; I10 Essential (primary) hypertension; M06.9 Rheumatoid arthritis, unspecified; Z96.651 Presence of right artificial knee joint; R26.81 Unsteadiness on feet; N83.201 Unspecified ovarian cyst, right side
CPT/HCPCS: 36415; 71010-TC; 71260-TC; 72193-TC; 73610-TC-RT; 73630-TC-RT; 74160-TC; 76830-TC; 80053; 81500; 84443; 85025; 85027; 85610; 86850; 86900; 86901; 87081; 93005; 93010; 93971-TC; 97116-GP; 97161-GP; 99283-25; G0008; Q2037; Q9967